=== PATIENT | female | born 1970 | race Asian ===

== ENCOUNTER 2016-10-25 10:32 | Emergency (ER) | payer OTHER ==
[~2016-10-25] VITALS: Ht 162.6 cm; Wt 53.0 kg
[2016-10-25 10:35] VITALS: BP 100/63; PULSE 102; RESP 15; TEMP 98.2; O2SAT 98
[2016-10-25 10:52] VITALS: PULSE 66; O2SAT 97
[2016-10-25] MEDS ORDERED: RABIES IMMUNE GLOBULIN INJ 300 UNITS/2 ML VIAL IM ONE (11:00)
[2016-10-25] MEDS ORDERED: RABIES VACCINE CHICK EMB INJ 2.5 UNITS/ML SYR IM ONE (11:00)
--- NOTE | 2016-10-25 11:02 | PD ---
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 She has abdominal arm but did not break the skin. She got bit on the left thigh through her pants and has a small skin break. She is concerned about rabies. She does not know the woman or the dogs. The woman did say that the dogs were up-to-date on her shots but she does not have contact information for this woman. History Past Medical History Medical History: Denies Significant Hx Tetanus Vaccination: < 5 Years Social History Alcohol Use: No Tobacco Use: No Allergies-Medications (Allergen,Severity, Reaction): Coded Allergies: No Known Allergies (Unverified , 10/25/16) Review of Systems Except as stated in HPI: all other systems reviewed are Neg Physical Exam Narrative GENERAL: Well-appearing 38 year-old woman, no acute distress. SKIN: Warm and dry. CARDIOVASCULAR: Warm and well perfused. RESPIRATORY: Normal rate and effort. MUSCULOSKELETAL: She is a little bit of bruising on the left arm. She has a small scrape with some abraded skin on the left thigh. There is no puncture wounds or lacerations. NEUROLOGICAL: Awake and alert. No gross deficits. Data Data Last Documented VS Vital Signs Date Time Temp Pulse Resp B/P Pulse Ox O2 Delivery O2 Flow Rate FiO2 10/25/16 10:52 66 97 Room Air 10/25/16 10:35 98.2 15 100/63 Orders Rabies Immune Globulin Inj (Hyperrab S/D (10/25/16 11:00) Rabies Vaccine Chick Emb Inj (Rabavert I (10/25/16 11:00) MDM Medical Decision Making Medical Screen Exam Complete: Yes Emergency Medical Condition: Yes Differential Diagnosis Dog bite, abrasion, scraped. Narrative Course Medical decision-making 38 year-old woman dog bite. This is pretty superficial on her leg and went through the pants. Did not break the dermis. Think the risk of rabies or wound infection is pretty low. I think can be treated with local wound care. The pretty worried about rabies and the dog is not available for testing. 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 After discussing the risk and benefits, patient would like to proceed at least initially with post exposure prophylaxis. Will be given rabies immunoglobulin and rabies vaccine. She up-to-date on her shots. Recommend local wound care of local antibiotic dressing. Diagnosis Primary Impression: Dog bite Patient Instructions: General Instructions Additional Instructions: Keep wound clean and dry. Wash wound daily with soap and water. Apply antibiotic ointment to wound. Follow-up with the health Department for follow-up vaccines. You'll need vaccines on day 3, 7, 14. Return to the emergency department for any pain redness or swelling in the area of the wound. Med/Other Pt SpecificInfo: Prescription(s) given Disposition: 01 DISCHARGE HOME Condition: Stable Kumar Farnsworth MD Oct 25, 2016 11:02
--- NOTE | 2016-10-25 12:30 | PD ---
Physical Exam Date Seen by Provider: Oct 25, 2016 Time Seen by Provider: 12:27 Narrative I was asked to see this 46-year-old female who experienced a dog bite to the left thigh earlier this morning. Patient is concerned about possible rabies exposure. Rabies immune globulin and rabies vaccine is ordered and injected by myself. Data Data Last Documented VS Vital Signs Date Time Temp Pulse Resp B/P Pulse Ox O2 Delivery O2 Flow Rate FiO2 10/25/16 10:52 66 97 Room Air 10/25/16 10:35 98.2 15 100/63 Orders Rabies Immune Globulin Inj (Hyperrab S/D (10/25/16 11:00) Rabies Vaccine Chick Emb Inj (Rabavert I (10/25/16 11:00) MDM Medical Record Reviewed: Yes Supervised Visit with FERNIE: Yes Narrative Course Patient had a total of 10 mL's of rabies immune globulin (Human) injected to the left thigh around the area with multiple injections. Lot # [id number] Expiration date: June 2018 Rabies vaccine is placed as well in the left deltoid. Lot # [id number] EXP: 05/2019 Diagnosis Primary Impression: Dog bite Qualified Code: W54.0XXA - Dog bite, initial encounter Patient Instructions: General Instructions Additional Instruction: Keep wound clean and dry. Wash wound daily with soap and water. Apply antibiotic ointment to wound. Follow-up with the health Department for follow-up vaccines. You'll need vaccines on day 3, 7, 14. Return to the emergency department for any pain redness or swelling in the area of the wound. Disposition: 01 DISCHARGE HOME Condition: Stable Nilton Gimenez Oct 25, 2016 12:30
== END 2016-10-25 14:00 | disposition home or self-care (01) ==
LOC: NEPD 10:32
DX: S71.152A Open bite, left thigh, initial encounter (principal); W54.0XXA Bitten by dog, initial encounter
CPT/HCPCS: 90375; 90471; 90675